=== PATIENT | male | born 1970 | race Caucasian/White ===

== ENCOUNTER 2017-07-28 09:51 | Emergency (ER) | payer MEDICAID | END 2017-07-28 11:40 | disposition home or self-care (01) | LOC: FTE 09:51 | DX: S99.911A Unspecified injury of right ankle, initial encounter (principal); X58.XXXA Exposure to other specified factors, initial encounter; Y92.9 Unspecified place or not applicable | CPT/HCPCS: 73610; 73610-RT; 99283-25 ==

== ENCOUNTER 2017-08-08 06:23 | Emergency (ER) | payer MEDICAID ==
[2017-08-08] MEDS: LIDOCAINE 1%/EPI 30 ML INJ INJ (07:04)
[2017-08-08] MEDS: CEFTRIAXONE 1 GM INJ IM (07:04)
[2017-08-08] MEDS: DIPHTH/TET/ACEL PERTUSS (ADULT) 0.5 ML VIAL IM* (07:07)
== END 2017-08-08 07:39 | disposition home or self-care (01) ==
LOC: FTE 06:23
DX: L02.611 Cutaneous abscess of right foot (principal)
CPT/HCPCS: 10061; 90471; 96372; 99284-25

== ENCOUNTER 2017-08-10 07:03 | Emergency (ER) | payer MEDICAID | END 2017-08-10 07:57 | disposition home or self-care (01) | LOC: FTE 07:03 | DX: Z48.01 Encounter for change or removal of surgical wound dressing (principal) | CPT/HCPCS: 99281; Z7502 ==